=== PATIENT | male | born 1995 | race African-American/Black ===

== ENCOUNTER 2025-02-11 18:33 | Emergency (ER) | payer MEDICAID ==
[~2025-02-11] VITALS: Ht 172.7 cm; Wt 66.0 kg
[2025-02-11 18:44] VITALS: O2SAT 99
[2025-02-11 19:06] VITALS: TEMP 36.7; O2SAT 99
[2025-02-11] MEDS ORDERED: CYCL10TA21 MT (22:47)
[2025-02-11] MEDS ORDERED: IBUP-2029 MT (22:47)
[2025-02-11 22:50] VITALS: BP 117/78; PULSE 66; RESP 14
[2025-02-11] MEDS: IBUPROFEN 800MG TABLET PO ONE (22:50)
== END 2025-02-11 23:46 | disposition home or self-care (01) ==
LOC: ER 18:33
DX: S90.02XA Contusion of left ankle, initial encounter (principal); X50.1XXA Overexertion from prolonged static or awkward postures, initial encounter; Y93.89 Activity, other specified; Y92.89 Other specified places as the place of occurrence of the external cause; Y99.8 Other external cause status
CPT/HCPCS: 29515; 73610; 73630; 99284